=== PATIENT | male | born 1970 ===

== ENCOUNTER 2025-01-08 06:16 | Day surgery (SDC) | payer BC, SELFPAY | END 2025-01-08 10:24 | disposition home or self-care (01) | LOC: GI 06:16 | PROVIDERS: ATTENDING PHYSICIAN Internal Medicine | DX: Z12.11 Encounter for screening for malignant neoplasm of colon (principal); K57.30 Diverticulosis of large intestine without perforation or abscess without bleeding | CPT/HCPCS: G0121 ==